=== PATIENT | male | born 1950 | race Caucasian/White ===

== ENCOUNTER 2018-09-11 13:33 | Inpatient (IN) | payer MEDICARE, MEDICAID ==
[~2018-09-11] VITALS: Ht 165.1 cm; Wt 55.8 kg
[~2018-09-11 13:33] MED LIST: ASPI-1159 PO; ATOR40TA70 PO; CLOP75TA16 PO; GABA-531 PO; METO25TA6 PO
[2018-09-11 15:10] LABS: CHLORIDE 96 mEq/L (98-107)
[2018-09-11 15:11] LABS: INR 1.2
[2018-09-11 16:27] LABS: BASOPHILS % 0.7 % (0.0-2.0); EOSINOPHILS % 2.5 % (0.0-5.0); HEMATOCRIT. 21.7 % (42.0-52.0); HEMOGLOBIN. 7.1 g/dL (14.0-18.0); LYMPHOCYTES % 8.4 % (20.0-50.0); MEAN CORPUSCULAR HEMOGLOBIN 31.1 pg (28.0-32.0); MEAN CORPUSCULAR VOLUME 95.5 fL (80.0-94.0); MEAN PLATELET VOLUME 8.5 fl (7.4-10.4); MONOCYTES % 10.8 % (2.0-8.0); NEUTROPHILS % 77.6 % (40.0-76.0); PLATELET 127 x1000/uL (130-400); RED BLOOD CELL COUNT 2.27 mill/uL (4.7-6.1); RED CELL DISTRIBUTION WIDTH 18.3 % (11.6-14.6)
[2018-09-11] MEDS ORDERED: PANTOPRAZOLE SODIUM 40 MG/VIAL IV NR (20:30)
[2018-09-12] VITALS (32 sets, daily range): BP systolic 97–127; BP diastolic 43–98
[2018-09-12] MEDS ORDERED: NICARDIPINE 100 MG in SODIUM CHLORIDE 0.9% 60 ML IV PRN ×2 (08:45→09:00)
[2018-09-12] MEDS ORDERED: DEXT 5%/LACTATED RINGERS 1,000 ML IV SCH ×2 (08:45→09:45)
[2018-09-12] MEDS ORDERED: LEVETIRACETAM 500MG PREMIX 100 ML IV SCH ×2 (09:00)
[2018-09-12] MEDS: PANTOPRAZOLE SODIUM 40 MG/VIAL IV SCH (10:45)
[2018-09-12 13:28] LABS: BASOPHILS % 1.2 % (0.0-2.0); EOSINOPHILS % 2.2 % (0.0-5.0); HEMATOCRIT. 21.6 % (42.0-52.0); LYMPHOCYTES % 8.7 % (20.0-50.0); MEAN CORPUSCULAR HEMOGLOBIN 30.9 pg (28.0-32.0); MEAN CORPUSCULAR VOLUME 95.4 fL (80.0-94.0); MEAN PLATELET VOLUME 8.4 fl (7.4-10.4); MONOCYTES % 9.5 % (2.0-8.0); NEUTROPHILS % 78.4 % (40.0-76.0); PLATELET 121 x1000/uL (130-400); RED BLOOD CELL COUNT 2.27 mill/uL (4.7-6.1)
[2018-09-12 13:32] LABS: CHLORIDE 97 mEq/L (98-107)
[2018-09-12] MEDS: DEXT 5%/LACTATED RINGERS 1,000 ML IV SCH (16:20)
[2018-09-12] MEDS: LEVETIRACETAM 500MG in SODIUM CHLORIDE 0.9% 100ML IV SCH (21:50)
[2018-09-12] MEDS: EPOETIN ALFA 10000UNITS/ML VIAL SUBCUT SCH (22:47)
[2018-09-13] VITALS (60 sets, daily range): BP systolic 114–147; BP diastolic 28–90
[2018-09-13 05:28] LABS: BASOPHILS % 1.1 % (0.0-2.0); EOSINOPHILS % 2.9 % (0.0-5.0); HEMATOCRIT. 25.9 % (42.0-52.0); HEMOGLOBIN. 8.7 g/dL (14.0-18.0); LYMPHOCYTES % 8.5 % (20.0-50.0); MEAN CORPUSCULAR HEMOGLOBIN 30.6 pg (28.0-32.0); MEAN CORPUSCULAR VOLUME 91.3 fL (80.0-94.0); MEAN PLATELET VOLUME 8.5 fl (7.4-10.4); MONOCYTES % 9.3 % (2.0-8.0); NEUTROPHILS % 78.2 % (40.0-76.0); PLATELET 121 x1000/uL (130-400); RED BLOOD CELL COUNT 2.84 mill/uL (4.7-6.1); RED CELL DISTRIBUTION WIDTH 18.6 % (11.6-14.6)
[2018-09-13 05:42] LABS: CHLORIDE 99 mEq/L (98-107)
[2018-09-13 05:54] LABS: PHOSPHORUS 2.4 mg/dL (2.5-4.9)
[2018-09-13] MEDS: LEVETIRACETAM 500MG in SODIUM CHLORIDE 0.9% 100ML IV SCH ×2 (09:04→20:05)
[2018-09-13] MEDS: FOLIC ACID/VITAMIN B COMP W-C TABLET PO SCH (09:04)
[2018-09-13] MEDS: PANTOPRAZOLE SODIUM 40 MG/VIAL IV SCH (09:04)
[2018-09-13] MEDS: DEXT 5%/LACTATED RINGERS 1,000 ML IV SCH (09:55)
[2018-09-13] MEDS: DEXT 5%/0.9% NACL 1,000 ML IV SCH (14:11)
[2018-09-14] VITALS (40 sets, daily range): BP systolic 86–155; BP diastolic 42–74
[2018-09-14 05:45] LABS: BASOPHILS % 1.3 % (0.0-2.0); EOSINOPHILS % 2.4 % (0.0-5.0); HEMATOCRIT. 26.1 % (42.0-52.0); HEMOGLOBIN. 8.6 g/dL (14.0-18.0); LYMPHOCYTES % 10.4 % (20.0-50.0); MEAN CORPUSCULAR HEMOGLOBIN 30.6 pg (28.0-32.0); MEAN CORPUSCULAR VOLUME 92.6 fL (80.0-94.0); MONOCYTES % 12.3 % (2.0-8.0); NEUTROPHILS % 73.6 % (40.0-76.0); PLATELET 113 x1000/uL (130-400); RED BLOOD CELL COUNT 2.82 mill/uL (4.7-6.1); RED CELL DISTRIBUTION WIDTH 19.2 % (11.6-14.6)
[2018-09-14 06:18] LABS: CHLORIDE 101 mEq/L (98-107)
[2018-09-14 06:32] LABS: PHOSPHORUS 3.6 mg/dL (2.5-4.9)
[2018-09-14] MEDS: LEVETIRACETAM 500MG in SODIUM CHLORIDE 0.9% 100ML IV SCH ×2 (08:42→21:19)
[2018-09-14] MEDS: PANTOPRAZOLE SODIUM 40 MG/VIAL IV SCH (08:42)
[2018-09-14] MEDS: FOLIC ACID/VITAMIN B COMP W-C TABLET PO SCH (09:00)
[2018-09-14] MEDS: DEXT 5%/0.9% NACL 1,000 ML IV SCH (13:52)
[2018-09-14] MEDS ORDERED: MAGNESIUM CITRATE 300ML SOLUTION PO PRN (20:30)
[2018-09-14] MEDS ORDERED: BISACODYL 10MG SUPP PR PRN (20:30)
[2018-09-14] MEDS: BISACODYL 5MG TABLET PO PRN (21:22)
[2018-09-14] MEDS: MINERAL OIL ENEMA 133ML PR SCH (21:23)
[2018-09-15] VITALS (27 sets, daily range): BP systolic 90–159; BP diastolic 24–70
[2018-09-15 05:31] LABS: BASOPHILS % 0.6 % (0.0-2.0); EOSINOPHILS % 1.1 % (0.0-5.0); HEMATOCRIT. 25.5 % (42.0-52.0); HEMOGLOBIN. 8.3 g/dL (14.0-18.0); LYMPHOCYTES % 8.1 % (20.0-50.0); MEAN CORPUSCULAR HEMOGLOBIN 30.3 pg (28.0-32.0); MEAN CORPUSCULAR VOLUME 93.6 fL (80.0-94.0); MEAN PLATELET VOLUME 9.2 fl (7.4-10.4); MONOCYTES % 9.4 % (2.0-8.0); NEUTROPHILS % 80.8 % (40.0-76.0); PLATELET 109 x1000/uL (130-400); RED BLOOD CELL COUNT 2.73 mill/uL (4.7-6.1); RED CELL DISTRIBUTION WIDTH 18.8 % (11.6-14.6)
[2018-09-15 08:04] LABS: CHLORIDE 102 mEq/L (98-107)
[2018-09-15 08:09] LABS: PHOSPHORUS 3.9 mg/dL (2.5-4.9)
[2018-09-15] MEDS: BISACODYL 5MG TABLET PO PRN (11:03)
[2018-09-15] MEDS: FOLIC ACID/VITAMIN B COMP W-C TABLET PO SCH (11:03)
[2018-09-15] MEDS: LEVETIRACETAM 500MG in SODIUM CHLORIDE 0.9% 100ML IV SCH ×2 (11:03→22:30)
[2018-09-15] MEDS: PANTOPRAZOLE SODIUM 40 MG/VIAL IV SCH (11:03)
[2018-09-15] MEDS: CARVEDILOL 3.125 MG TABLET PO SCH ×2 (11:05→21:00)
[2018-09-15] MEDS ORDERED: EPOE10005 SUBCUT (12:16)
[2018-09-15] MEDS ORDERED: KEPP500 MT (12:16)
[2018-09-15] MEDS: EPOETIN ALFA 10000UNITS/ML VIAL SUBCUT SCH (22:00)
[2018-09-16] VITALS (8 sets, daily range): BP systolic 107–147; BP diastolic 23–93
[2018-09-16] MEDS: CARVEDILOL 3.125 MG TABLET PO SCH (09:00)
[2018-09-16] MEDS: PANTOPRAZOLE SODIUM 40 MG/VIAL IV SCH (11:15)
[2018-09-16] MEDS: FOLIC ACID/VITAMIN B COMP W-C TABLET PO SCH (11:15)
[2018-09-16] MEDS: LEVETIRACETAM 500MG in SODIUM CHLORIDE 0.9% 100ML IV SCH (11:16)
== END 2018-09-16 18:55 | DRG 57 ==
LOC: ER 13:33 → EDBEDREQSVC 17:01 → EDBEDREQTM 17:01 → MICUNO 17:39 → EDBEDREQ 17:48 → EDBEDREQTM 17:48 → ENRESERV 09-12 09:21 → CANRESERV 09-12 09:21 → ENRESERV 09-12 09:25 → 6EST 09-15 16:37
PROVIDERS: ADMIT Family Medicine; ATTEND Family Medicine
PROC: 30233N1 Transfusion of Nonautologous Red Blood Cells into Peripheral Vein, Percutaneous Approach (ICD-10-PCS; principal; 2018-09-12)
PROC: 5A1D70Z Performance of Urinary Filtration, Intermittent, Less than 6 Hours Per Day (ICD-10-PCS; 2018-09-16)
DX: S06.309A Unspecified focal traumatic brain injury with loss of consciousness of unspecified duration, initial encounter (principal); E43 Unspecified severe protein-calorie malnutrition; G93.40 Encephalopathy, unspecified; I13.2 Hypertensive heart and chronic kidney disease with heart failure and with stage 5 chronic kidney disease, or end stage renal disease; R64 Cachexia; I95.9 Hypotension, unspecified; E11.22 Type 2 diabetes mellitus with diabetic chronic kidney disease; D69.6 Thrombocytopenia, unspecified; E11.40 Type 2 diabetes mellitus with diabetic neuropathy, unspecified; E83.39 Other disorders of phosphorus metabolism; I42.9 Cardiomyopathy, unspecified; I48.2 Chronic atrial fibrillation; N18.6 End stage renal disease; D63.8 Anemia in other chronic diseases classified elsewhere; W18.30XA Fall on same level, unspecified, initial encounter; E78.5 Hyperlipidemia, unspecified; F03.90 Unspecified dementia, unspecified severity, without behavioral disturbance, psychotic disturbance, mood disturbance, and anxiety; I50.22 Chronic systolic (congestive) heart failure; E78.00 Pure hypercholesterolemia, unspecified; X58.XXXA Exposure to other specified factors, initial encounter; G40.909 Epilepsy, unspecified, not intractable, without status epilepticus; I44.7 Left bundle-branch block, unspecified; M47.812 Spondylosis without myelopathy or radiculopathy, cervical region; N25.81 Secondary hyperparathyroidism of renal origin; Z79.02 Long term (current) use of antithrombotics/antiplatelets; Z86.73 Personal history of transient ischemic attack (TIA), and cerebral infarction without residual deficits; Z95.810 Presence of automatic (implantable) cardiac defibrillator; Z99.2 Dependence on renal dialysis; Z79.82 Long term (current) use of aspirin; Z79.899 Other long term (current) drug therapy; Y93.89 Activity, other specified; Y92.89 Other specified places as the place of occurrence of the external cause; Y99.8 Other external cause status; Z68.20 Body mass index [BMI] 20.0-20.9, adult
CPT/HCPCS: 36415; 71045; 76700; 82140; 82270; 83735; 83880; 84100; 84484; 86850; 86900; 86920; 92610; 93005; 93306; 93880; 96365; 96375; 97110; 97162; 97166; 97530; 97535; 99291; A6261; C9113; J0885; J1953; J3490; J7042; J7050; J7070; J7121; P9016